=== PATIENT | male | born 1935 | race Caucasian/White ===

== ENCOUNTER 2023-11-28 13:30 | Outpatient (RCR) | payer MEDICARE, SELFPAY ==
[2023-08-17 15:20] VITALS: BP 104/70; PULSE 80; RESP 16; O2SAT 100
[2023-08-17 15:39] VITALS: PULSE 80
== END 2023-12-03 07:55 | disposition home or self-care (01) ==
LOC: ANHCPREHAB 13:30
DX: Z95.2 Presence of prosthetic heart valve (principal)
CPT/HCPCS: 93798